=== PATIENT | male | born 1970 | race Two or more races ===

== ENCOUNTER 2018-05-11 12:59 | Emergency (ER) | payer BC ==
[~2018-05-11] VITALS: Ht 170.2 cm; Wt 145.1 kg
[2018-05-11] MEDS ORDERED: ALBUTEROL FS 2.5 MG/3 ML VIAL.NEB NEB ONE (13:30)
[2018-05-11] MEDS ORDERED: IPRATROPIUM NEB FS 0.5 MG/2.5 ML AMPUL.NEB NEB ONE (13:30)
[2018-05-11] MEDS ORDERED: ALBUTEROL FS 2.5 MG/3 ML VIAL.NEB ONE (13:38)
[2018-05-11] MEDS ORDERED: IPRATROPIUM NEB FS 0.5 MG/2.5 ML AMPUL.NEB ONE (13:38)
--- NOTE | 2018-05-11 14:14 | NUR ---
ASSUMED CARE OF PT.
--- NOTE | 2018-05-11 14:17 | NUR ---
CALLED RADIOLOGY RE: CXR
--- NOTE | 2018-05-11 14:21 | NUR ---
PT IS AWAITING CXR.
[2018-05-11 15:20] VITALS: BP 133/73
== END 2018-05-11 15:20 | disposition home or self-care (01) ==
LOC: ER 13:01
DX: J45.909 Unspecified asthma, uncomplicated (principal); J06.9 Acute upper respiratory infection, unspecified; I10 Essential (primary) hypertension; E78.5 Hyperlipidemia, unspecified; E11.40 Type 2 diabetes mellitus with diabetic neuropathy, unspecified
CPT/HCPCS: 71045; 94640; 99283; A4606